=== PATIENT | female | born 1960 | race Caucasian/White ===

== ENCOUNTER 2023-10-27 18:15 | Inpatient (IN) | payer OTHER ==
[2023-10-27] MEDS: HYDROmorphone 1 MG/ML 1 ML SYRINGE IVP STA (20:15)
[2023-10-27] MEDS: MORPHINE SULFATE 4 MG/ML SYRINGE IVP STA (20:21)
--- NOTE | 2023-10-27 21:14 | XR ---
EXAMINATION TYPE: XR Hip RT and AP Pelvis DATE OF EXAM: 10/27/2023 8:02 PM CLINICAL INDICATION: Female, 63 years old with history of fall; [facility] COMPARISON: None. TECHNIQUE: XR Hip RT and AP Pelvis; hip was examined in the frontal and lateral projections and a AP pelvis. FINDINGS/aIMPRESSION: Right hip is rotated slightly. Cortical lucency through the neck suggestive of fracture. Consider CT imaging for confirmation. The left hip appears intact.
--- NOTE | 2023-10-27 21:16 | XR ---
EXAMINATION TYPE: XR chest 1V DATE OF EXAM: 10/27/2023 8:02 PM CLINICAL INDICATION: Female, 63 years old with history of Pre surgical; [facility] COMPARISON: None TECHNIQUE: XR chest 1V Frontal view of the chest. FINDINGS: Lungs/Pleura: Prominent interstitial lung markings are seen scattered throughout the lungs. No eviden ce of focal consolidation, pneumothorax or pleural effusion. Pulmonary vascularity: Unremarkable. Heart/mediastinum: Cardiomediastinal silhouette is unremarkable. Musculoskeletal: No acute osseous pathology. IMPRESSION: Prominent interstitial lung markings in the lung apices. Correlate for COPD/interstitial lung disease , No acute cardiopulmonary disease/process.
[2023-10-27] MEDS ORDERED: NALOXONE 0.4 MG/ML 1 ML VIAL IV PRN (21:30)
[2023-10-27] MEDS ORDERED: IBUPROFEN 400 MG TAB PO PRN (21:30)
--- NOTE | 2023-10-27 21:33 | ED ---
Fall HPI - General Chief Complaint: Fall Stated Complaint: Fall/Hip Pain Time Seen by Provider: 10/27/23 19:12 Source: EMS Mode of arrival: EMS - History of Present Illness Initial Comments: 63-year-old female presented with chief complaint of right hip pain. Patient had a fall from standing at home. She is unable to move her right leg without significant pain. She was brought here by EMS. Pain is focused around the hip. No numbness or tingling. No other injuries. No head injury, loss of consciousness, or use of blood thinners. - Related Data Home Medications Medication Instructions Recorded Confirmed Albuterol Sulfate [Ventolin HFA] 1 - 2 puff INHALATION RT-Q6H PRN 10/28/23 10/28/23 Budesonide/Formoterol Fumarate 2 puff INHALATION RT-BID 10/28/23 10/28/23 [Symbicort 160-4.5 Mcg Inhaler] Butalb/APAP/Caff 50-325-40Mg 1 tab PO Q8H PRN 10/28/23 10/28/23 [Fioricet 50-325-40] Dextroamphetamine/Amphetamine 20 mg PO DAILY 10/28/23 10/28/23 [Adderall Xr 20 mg Capsule] Dextroamphetamine/Amphetamine 5 mg PO DAILY 10/28/23 10/28/23 [Adderall Xr 5 mg Capsule] Ibuprofen [Motrin] 800 mg PO Q8H PRN 10/28/23 10/28/23 Loratadine [Claritin] 10 mg PO DAILY 10/28/23 10/28/23 Allergies Allergy/AdvReac Type Severity Reaction Status Date / Time No Known Allergies Allergy Verified 10/28/23 08:58 Review of Systems ROS Statement: Those systems with pertinent positive or pertinent negative responses have been documented in the HPI. ROS Other: All systems not noted in ROS Statement are negative. Past Medical History Past Medical History: COPD Additional Past Medical History / Comment(s): hx of brain tumor (15 years old) History of Any Multi-Drug Resistant Organisms: None Reported Past Surgical History: Tubal Ligation Past Psychological History: Depression Smoking Status: Current every day smoker Past Alcohol Use History: None Reported Past Drug Use History: None Reported General Exam General appearance: alert, in no apparent distress Head exam: Present: atraumatic, normocephalic, normal inspection Eye exam: Present: normal appearance, EOMI Neck exam: Present: normal inspection. Absent: meningismus Respiratory exam: Absent: respiratory distress Cardiovascular Exam: Present: regular rate Right Hip exam: Present: tenderness, external rotation. Absent: full ROM Neurovascular tendon exam: Present: no vascular compromise Neurological exam: Present: alert, oriented X3 Psychiatric exam: Present: normal affect, normal mood Skin exam: Present: warm, dry Course Vital Signs 10/27/23 10/27/23 10/28/23 18:19 22:49 00:09 Temperature 97.6 F 98.2 F Pulse Rate 71 75 75 Respiratory 16 16 16 Rate Blood Pressure 121/72 105/71 115/71 O2 Sat by Pulse 91 L 92 L 90 L Oximetry Medical Decision Making - Medical Decision Making Was pt. sent in by a medical professional or institution (, PA, BURGLAR ALARM INSPECTOR, urgent care, hospital, or assisted...) When possible be specific @ -No Did you speak to anyone other than the patient for history (EMS, parent, family, police, friend...)? What history was obtained from this source @ -No Did you review nursing and triage notes (agree or disagree)? Why? @ -I reviewed and agree with nursing and triage notes Were old charts reviewed (outside hosp., previous admission, EMS record, old EKG, old radiological studies, urgent care reports/EKG's, assisted records)? Report findings @ -No old charts were reviewed Differential Diagnosis (chest pain, altered mental status, abdominal pain women, abdominal pain men, vaginal bleeding, weakness, fever, dyspnea, syncope, headache, dizziness, GI bleed, back pain, seizure, CVA, palpatations, mental health, musculoskeletal)? @ -Differential Musculoskeletal Muscular strain, contusion, ligament sprain, fracture, arthritis, septic arthritis, bursitis, cellulitis, muscle spasm, nerve compression, DVT, arterial occlusion, herpes zoster, electrolyte abnormality, tumor.... This is not meant to be in all inclusive list EKG interpreted by me (3pts min.). @ -As above X-rays interpreted by me (1pt min.). @ -X-ray shows right hip slightly rotated. Cortical lucency through the neck suggestive of fracture. Left hip appears intact Chest x-ray shows prominent interstitial lung markings in the lung apices. Correlate for COPD/interstitial lung disease, no acute cardiopulmonary disease /process CT interpreted by me (1pt min.). @ -None done U/S interpreted by me (1pt. min.). @ -None done What testing was considered but not performed or refused? (CT, X-rays, U/S, labs)? Why? @ -None What meds were considered but not given or refused? Why? @ -None Did you discuss the management of the patient with other professionals (professionals i.e. DrGoyo, PA, BURGLAR ALARM INSPECTOR, lab, RT, psych nurse, manager social media, fuel conversion technician, teacher, chief contract officer, high risk case manager)? Give summary @ -Spoke with Dr. Ceja who accepts admission Was smoking cessation discussed for >3mins.? @ -No Was critical care preformed (if so, how long)? @ -No Were there social determinants of health that impacted care today? How? (Home lessness, low income, unemployed, alcoholism, drug addiction, transportation, low edu. Level, literacy, decrease access to med. care, [facility], rehab)? @ -No Was there de-escalation of care discussed even if they declined (Discuss DNR or withdrawal of care, Hospice)? DNR status @ -No What co-morbidities impacted this encounter? (DM, HTN, Smoking, COPD, CAD, Cancer, CVA, ARF, Chemo, Hep., AIDS, mental health diagnosis, sleep apnea, morbid obesity)? @ -None Was patient admitted / discharged? Hospital course, mention meds given and route, prescriptions, significant lab abnormalities, going to OR and other pertinent info. @ -63-year-old female presenting with chief complaint of right hip pain after fall at home. X-rays positive for fracture. Patient will be admitted. Provided with pain medication. Labs are placed and consult placed to medicine for surgical clearance. Patient is agreeable with this plan. I discussed this case with my attending Dr. Ramirez Undiagnosed new problem with uncertain prognosis? @ -No Drug Therapy requiring intensive monitoring for toxicity (Heparin, Nitro, Insulin, Cardizem)? @ -No Were any procedures done? @ -No Diagnosis/symptom? @ -Hip fracture Acute, or Chronic, or Acute on Chronic? @ -Acute Uncomplicated (without systemic symptoms) or Complicated (systemic symptoms)? @ -Complicated Side effects of treatment? @ -No Exacerbation, Progression, or Severe Exacerbation? @ -No Poses a threat to life or bodily function? How? (Chest pain, USA, LA, pneumonia, PE, COPD, DKA, ARF, appy, cholecystitis, CVA, Diverticulitis, Homicidal, Suicidal, threat to staff... and all critical care pts) @ -Yes - Lab Data Result diagrams: 10/27/23 21:59 10/27/23 21:59 Disposition Clinical Impression: Hip fracture Disposition: ADMITTED IP TO THIS HOSP Condition: Fair Time of Disposition: 21:33
[2023-10-27] MEDS: SODIUM CHLORIDE 0.9% 1,000 ML IV SCH (21:58)
[2023-10-27 22:12] LABS: Basophils % (A) 0 %; Eosinophils % (A) 0 %; HCT 40.7 % (34.0-46.0); HGB 13.5 gm/dL (11.4-16.0); Lymphocytes # (A) 0.9 k/uL (1.0-4.8); Lymphocytes % (A) 9 %; MCH 31.1 pg (25.0-35.0); MCHC 33.1 g/dL (31.0-37.0); Monocytes # (A) 0.8 k/uL (0-1.0); Monocytes % (A) 9 %; Neutrophils # (A) 7.8 k/uL (1.3-7.7); Neutrophils % (A) 81 %; Platelet Count 139 k/uL (150-450); RBC 4.33 m/uL (3.80-5.40); RDW 12.1 % (11.5-15.5); WBC 9.7 k/uL (3.8-10.6)
[2023-10-27 22:45] LABS: ALT 34 U/L (4-34); AST 35 U/L (14-36); African American GFR (CKD) >90 (>60 ml/min/1.73 sqM); Alkaline Phosphatase 78 U/L (38-126); Anion Gap 2 mmol/L; Blood Urea Nitrogen 17 mg/dL (7-17); Calcium 9.4 mg/dL (8.4-10.2); Carbon Dioxide 29 mmol/L (22-30); Chloride 104 mmol/L (98-107); Glucose 117 mg/dL (74-99); Non-African American GFR(CKD) >90 (>60 ml/min/1.73 sqM); Potassium 3.8 mmol/L (3.5-5.1); Sodium 135 mmol/L (137-145); Total Bilirubin 0.6 mg/dL (0.2-1.3); Total Protein 6.3 g/dL (6.3-8.2)
[2023-10-27] MEDS: HYDROcodone/APAP 5-325MG 1 EACH TAB PO PRN (22:50)
[2023-10-28] MEDS: MORPHINE SULFATE 4 MG/ML SYRINGE IV PRN (00:35)
--- NOTE | 2023-10-28 11:51 | P.HPOR ---
History of Present Illness H&P Date: 10/28/23 Chief Complaint: Right hip pain. This is a 63-year-old female who fell in her home yesterday sustaining injury to her right hip. On exam and x-ray in the emergency department she was found to have a femoral neck fracture of the right hip. The patient is admitted to our service for surgical intervention and care. Past Medical History Past Medical History: COPD Additional Past Medical History / Comment(s): hx of brain tumor (15 years old) History of Any Multi-Drug Resistant Organisms: None Reported Past Surgical History: Tubal Ligation Past Anesthesia/Blood Transfusion Reactions: No Reported Reaction Past Psychological History: Depression Smoking Status: Current every day smoker Past Alcohol Use History: None Reported Past Drug Use History: None Reported Medications and Allergies Home Medications Medication Instructions Recorded Confirmed Type Albuterol Sulfate [Ventolin HFA] 1 - 2 puff INHALATION RT-Q6H PRN 10/28/23 10/28/23 History Budesonide/Formoterol Fumarate 2 puff INHALATION RT-BID 10/28/23 10/28/23 History [Symbicort 160-4.5 Mcg Inhaler] Butalb/APAP/Caff 50-325-40Mg 1 tab PO Q8H PRN 10/28/23 10/28/23 History [Fioricet 50-325-40] Dextroamphetamine/Amphetamine 20 mg PO DAILY 10/28/23 10/28/23 History [Adderall Xr 20 mg Capsule] Dextroamphetamine/Amphetamine 5 mg PO DAILY 10/28/23 10/28/23 History [Adderall Xr 5 mg Capsule] Ibuprofen [Motrin] 800 mg PO Q8H PRN 10/28/23 10/28/23 History Loratadine [Claritin] 10 mg PO DAILY 10/28/23 10/28/23 History Allergies Allergy/AdvReac Type Severity Reaction Status Date / Time No Known Allergies Allergy Verified 10/28/23 08:58 Physical Examination This is a pleasant 63-year-old female in no acute distress. She is alert and oriented 3. Exam of the head and neck reveals no obvious deformity. She has full cervical spine motion without difficulty or pain. Examining her upper extremities is unremarkable. She has full shoulder, elbow, wrist and finger motion bilaterally. Neurovascular status to the upper extremities is intact. Exam of the right hip reveals shortening and external rotation to the leg. There is pain with motion to the right hip. She has full foot and ankle motion without difficulty or pain.Neurovascular status to the lower extremities is intact. Results X-rays reveal a femoral neck fracture with mild displacement. - Labs Labs: Abnormal Lab Results - Last 24 Hours (Table) 10/27/23 10/27/23 Range/Units 21:59 21:59 Plt Count 139 L (150-450) k/uL Neutrophils # 7.8 H (1.3-7.7) k/uL Lymphocytes # 0.9 L (1.0-4.8) k/uL Sodium 135 L (137-145) mmol/L Creatinine 0.48 L (0.52-1.04) mg/dL Glucose 117 H (74-99) mg/dL H & H 10/27/23 Range/Units 21:59 Hgb 13.5 (11.4-16.0) gm/dL Hct 40.7 (34.0-46.0) % Result Diagrams: 10/27/23 21:59 10/27/23 21:59 Assessment and Plan (1) Subcapital fracture of right hip Current Visit: Yes Status: Acute Code(s): S72.011A - UNSP INTRACAPSULAR FRACTURE OF RIGHT FEMUR, INIT FOR CLOS FX SNOMED Code(s): 206906227 (2) Fall Current Visit: Yes Status: Acute Code(s): W19.XXXA - UNSPECIFIED FALL, INITIAL ENCOUNTER SNOMED Code(s): 6427100 Plan: The clinical and x-ray findings are discussed with the patient. It is recommended she undergo hemiarthroplasty of the right hip. The procedures discussed in detail including the possible risks and outcomes. She may likely be a candidate for inpatient rehabilitation postoperatively. After discussion and consideration the patient elects to proceed with the surgery.
[2023-10-28 14:50] VITALS: BMI 17.6
[2023-10-29 09:41] LABS: Prothrombin Time 11.1 sec (10.0-12.5)
--- NOTE | 2023-10-29 09:43 | P.CONS ---
History of Present Illness - Reason for Consult Consult date: 10/29/23 - History of Present Illness 63-year-old female presents emergency department with right hip pain following a fall from standing at home. Upon arrival patient was unable to move her right leg without significant pain. Was brought to the hospital by EMS localizing pain to her right hip. She had no associated numbness or tingling. She has no other injuries, no head injury no loss of consciousness or use of blood thinne rs. On x-ray in the emergency department patient was found to have a femoral neck fracture of the right hip. Patient has been admitted to the surgical service for intervention care. Patient has taken 1 [place] 5325 and 4 mg IV push of morphine thus far for pain. She has a past medical history significant for COPD and she continues to be a current smoker endorsing smoking half pack per day since she was a teenager (~50 years) for which she utilizes Symbicort once in the morning and once at night and has an albuterol inhaler as needed, which she states she almost never has to use. Additionally past medical history significant for a brain tumor that was surgically removed when she was 15 years old, she also states that she currently has a "small" tumor in her brain that causes headaches sometimes, for which she takes Fioricet (she states she has to take this ~3 times every week). On review of patient's home medications she is currently taking Symbicort twice daily, albuterol as needed (which she states she rarely, if ever, needs), Fioricet, Adderall (which she states she has not be en taking), as well as [id number] vitamins (C, D, iron, magnesium). She states she follows up with a primary care physician every 3 months, most recently seeing them last month. From a medicine perspective, she is cleared for surgery. Initial lab work done in the ER showed WBCs 9.7, Hgb 13.5, Hct 40.7, PLT 139, sodium 135, BUN 17, creatinine 0.48, glucose of 117 Right hip and AP pelvis x-ray done in the emergency department showed that the right hip is slightly rotated, cortical lucency through the neck suggestive of fracture. Recommending CT imaging for confirmation. Chest x-ray completed in the emergency department showed prominent interstitial lung markings in the lung apices, recommending correlation for COPD/interstitial lung disease. There is no acute cardiopulmonary disease/process. Patient admitted to internal medicine service REVIEW OF SYSTEMS: CONSTITUTIONAL: No fever, no malaise, no fatigue. HEENT: No recent visual problems or hearing problems. Denied any sore throat. CARDIOVASCULAR: No chest pain, orthopnea, PND, no palpitations, no syncope. PULMONARY: No shortness of breath, no cough, no hemoptysis. GASTROINTESTINAL: No diarrhea, no nausea, no vomiting, no abdominal pain. NEUROLOGICAL: No headaches, no weakness, no numbness. HEMATOLOGICAL: Denies any bleeding or petechiae. GENITOURINARY: Denies any burning micturition, frequency, or urgency. MUSCULOSKELETAL/RHEUMATOLOGICAL: Denies any joint pain, swelling. Pain localized to the right hip ENDOCRINE: Denies any polyuria or polydipsia. The rest of the 14-point review of systems is negative. PHYSICAL EXAMINATION: GENERAL: The patient is alert and oriented x3, not in any acute distress. Well developed, well nourished. Discomfort noted due to pain from his ribs. HEENT: Pupils are round and equally reacting to light. EOMI. No scleral icterus. No conjunctival pallor. Normocephalic, atraumatic. No pharyngeal erythema. No thyromegaly. Laceration of the left eyebrow. CARDIOVASCULAR: S1 and S2 present. No murmurs, rubs, or gallops. PULMONARY: Chest is clear to auscultation, no wheezing or crackles. ABDOMEN: Soft, nontender, nondistended, normoactive bowel sounds. No palpable organomegaly. Mild tenderness of the right upper abdomen. MUSCULOSKELETAL: No joint swelling or deformity. Pain localized to the right hip EXTREMITIES: No cyanosis, clubbing, or pedal edema. NEUROLOGICAL: Gross neurological examination did not reveal any focal deficits. SKIN: No rashes. Open scrape on his right elbow and his right knee, both cared for and covered with bandages. Assessment/Plan # Femoral neck fracture of the right hip secondary to mechanical fall at home Patient endorses right hip pain that radiates down her right leg, femoral neck fracture confirmed on x-ray Surgical intervention required Patient is low to intermediate operative risk the risk being COPD and active smoking -COPD without any acute exacerbation Continue to monitor vital signs, monitor CBC, monitor CMP, continue telemetry monitoring Labs and medication were reviewed. Continue with symptomatic treatment. Resume home medication as able. Further recommendations as per clinical course of the patient. Thank you for this consult we will continue to manage and follow medically as needed. Past Medical History Past Medical History: COPD Additional Past Medical History / Comment(s): hx of brain tumor (15 years old) History of Any Multi-Drug Resistant Organisms: None Reported Past Surgical History: Tubal Ligation Past Anesthesia/Blood Transfusion Reactions: No Reported Reaction Past Psychological History: Depression Smoking Status: Current every day smoker Past Alcohol Use History: None Reported Past Drug Use History: None Reported Medications and Allergies Home Medications Medication Instructions Recorded Confirmed Type Albuterol Sulfate [Ventolin HFA] 1 - 2 puff INHALATION RT-Q6H PRN 10/28/23 10/28/23 History Budesonide/Formoterol Fumarate 2 puff INHALATION RT-BID 10/28/23 10/28/23 History [Symbicort 160-4.5 Mcg Inhaler] Butalb/APAP/Caff 50-325-40Mg 1 tab PO Q8H PRN 10/28/23 10/28/23 History [Fioricet 50-325-40] Dextroamphetamine/Amphetamine 20 mg PO DAILY 10/28/23 10/28/23 History [Adderall Xr 20 mg Capsule] Dextroamphetamine/Amphetamine 5 mg PO DAILY 10/28/23 10/28/23 History [Adderall Xr 5 mg Capsule] Ibuprofen [Motrin] 800 mg PO Q8H PRN 10/28/23 10/28/23 History Loratadine [Claritin] 10 mg PO DAILY 10/28/23 10/28/23 History Allergies Allergy/AdvReac Type Severity Reaction Status Date / Time No Known Allergies Allergy Verified 10/28/23 08:58 Physical Exam Vitals: Vital Signs Temp Pulse Resp BP Pulse Ox 10/29/23 01:06 99.7 F H 79 16 137/72 97 10/28/23 20:00 17 Intake and Output 10/28/23 10/29/23 10/29/23 22:59 06:59 14:59 Output Total 200 150 Balance -200 -150 Output: Urine 200 150 Other: Voiding Method External Catheter # Voids 1 Results CBC & Chem 7: 10/27/23 21:59 10/27/23 21:59
[2023-10-29] MEDS: IV FLUID CONTINUATION 1,000 ML IV ONE (11:21)
[2023-10-29] MEDS: MIDAZOLAM 2 MG/2 ML VIAL IVP ONE (11:39)
--- NOTE | 2023-10-29 11:49 | P.ANPRN ---
Procedure Note - Anesthesia - Nerve Block Performed Right Derik Single Time Out Performed: Yes Date of Procedure: 10/29/23 Procedure Start Time: 11:39 Procedure Stop Time: 11:44 Location of Patient: PreOp Indication: Acute Post-Operative Pain, Analgesia, Requested by Surgeon Sedation Type: Sedate with meaningful contact maintained Preparation: Sterile Prep Position: Supine Catheter: None Needle Types: Pajunk Needle Gauge: 21 Ultrasound used to visualize needle placement: Yes Ultrasound used to observe medication spread: Yes Injectate: 0.5% Ropivacaine (see comment for volume) (Ropiv 20ml+decadron 4mg) Blood Aspirated: No Pain Paresthesia on Injection Noted: No Resistance on Injection: Normal Image Stored and Saved: Yes Events: Uneventful and Well Tolerated
[2023-10-29] MEDS ORDERED: TRANEXAMIC ACID 1,000 MG in SODIUM CHLORIDE 0.9% 100 ML IVPB PRN (11:51)
[2023-10-29] MEDS: IPRATROPIUM-ALBUTEROL 3 ML NEB INHALATION STA (11:54)
[2023-10-29] MEDS: ONDANSETRON 4 MG/2 ML VIAL IVP STA (11:55)
[2023-10-29] MEDS: DEXAMETHASONE SOD PHOSPHATE 4 MG/ML 1 ML VIAL IVP STA (11:55)
[2023-10-29] MEDS ORDERED: LIDOCAINE 1% INJ 10MG/ML (20 ML MDV) ONE (12:05)
[2023-10-29] MEDS ORDERED: TRANEXAMIC 1,000 MG/100ML-NACL PREMIX BAG ONE (12:05)
[2023-10-29] MEDS ORDERED: DEXAMETHASONE SOD PHOSPHATE 4 MG/ML 1 ML VIAL ONE (12:05)
[2023-10-29] MEDS ORDERED: SUCCINYLCHOLINE CHLORIDE 200 MG/10 ML VIAL IV ONE (12:05)
[2023-10-29] MEDS ORDERED: fentaNYL (PF) 50 MCG/ML 2 ML AMP ONE (12:05)
[2023-10-29] MEDS ORDERED: ROPIVACAINE 5 MG/ML 30 ML VIAL ONE (12:05)
[2023-10-29] MEDS ORDERED: PROPOFOL 10 MG/ML 20 ML VIAL IV ONE (12:05)
[2023-10-29] MEDS: LACTATED RINGERS 1,000 ML IV ONE ×2 (12:07→13:36)
[2023-10-29] MEDS: SODIUM CHLORIDE 0.9% 100 ML with ceFAZolin 2,000 MG IV ONE (12:10)
[2023-10-29] MEDS: ceFAZolin 1,000 MG in SODIUM CHLORIDE 0.9% 1,000 ML IRRIGATION ONE (12:40)
[2023-10-29] MEDS ORDERED: MAGNESIUM HYDROXIDE 2,400 MG/30 ML CUP PO PRN (13:41)
[2023-10-29] MEDS ORDERED: HYDROmorphone 0.5 MG/0.5 ML SYRINGE IVP PRN (13:41)
[2023-10-29] MEDS ORDERED: NALOXONE 0.4 MG/ML 1 ML VIAL IV PRN (13:41)
[2023-10-29] MEDS ORDERED: HYDROcodone/APAP 5-325MG 1 EACH TAB PO PRN (13:41)
[2023-10-29] MEDS ORDERED: ONDANSETRON 4 MG/2 ML VIAL IVP PRN (13:41)
--- NOTE | 2023-10-29 14:16 | P.OP ---
Date of Procedure: 10/29/23 Procedure(s) Performed: PREOPERATIVE DIAGNOSIS: Right hip femoral neck fracture POSTOPERATIVE DIAGNOSIS: Right hip femoral neck fracture OPERATION: Right hip cemented unipolar hemiarthroplasty. ANESTHESIA: General ESTIMATED BLOOD LOSS: 100 ml. [employer]ILITY [employer]: Inocencia Bello PA-C (assistance with: patient positioning, retraction, exposure, hemostasis, leg positioning, implantation, irrigation, closure, dressing) COMPLICATIONS: None apparent. COMPONENTS IMPLANTED: Lauren Heritage cemented femoral stem; unipolar femoral head; neck extension augments as needed. INDICATIONS: Clare is a 63-year-old female with a history of falling and sustaining a femoral neck fracture. I have recommended surgical treatment with a cemented unipolar hemiarthroplasty. I have discussed this procedure in detail and explained the potential risks and complications as being inclusive of, but not limited to: Bleeding, infection, scarring, discomfort, blood vessel and/or nerve damage, limb length inequality, gait disturbance, blood clot, pulmonary embolism, , and other risks. The consent form has been signed. PROCEDURE: After appropriate consent was obtained, the patient was taken to the operating room and placed in supine position. Gen. anesthetic was administered and after confirmation of adequate anesthesia, the patient was placed into the lateral decubitus position with the affected side up. Care was taken to make sure that all pressure points were adequately padded and a [place] hip posi tioner was utilized for positioning. The hip was prepped and draped in the usual aseptic fashion using a combination of Chloraprep and alcohol. [place] drape was used for the case and the patient received intravenous antibiotics prior to the incision. The incision was created directly over the greater trochanter and carried slightly posteriorly for a posterior approach to the hip. The incision was then deepened down to subcutaneous tissue and fascia abhay. Fascia abhay was split in line with the incision and split proximally along the fibers of the gluteus arthur. The underlying fibers of the muscle were teased apart using finger dissection and bleeding vessels were picked up and coagulated. Retractor was then placed posteriorly consisting of a blunt Sim. The short external rotators and capsule were exposed and good visualization of the attachment of the external rotators to the femur was established. The short external rotators and capsule were released using electrocautery from their femoral attachments. A hockey stick shaped incision was created in the capsule. Joint fluid and hemarthrosis was evacuated and the patient's hip was internally rotated to expose the fracture site. The femoral neck cut was created approximately 1 cm superior to the lesser trochanter using a reciprocating saw. The femoral head and neck fragment was removed and visualization and palpation of the acetabular vault showed intact hyaline cartilage with no bone exposure or significant degeneration. Attention was then directed back to the proximal femur. Retractors were placed around the proximal femur and box osteotome was used followed by canal finder and trochanteric reamer. Cylindrical reaming was performed. Progressive broaching was then performed starting with a #10 broach and progressing final size, in a position of 10-15 degrees anteversion. [place] anteversion was within 5 degrees of stem position. The final size broach had excellent fit and fill of the patient's metaphysis and diaphysis. Calcar planing was performed. Trial reduction was then performed starting with appropriately sized femoral head and various neck extensions to evaluate stability, limb length equality, and soft tissue tension. Once these parameters were satisfactory, the corresponding final components were then called for. Trial components were removed. The femoral canal was sized for the centralizer and cement plug. Once the cement plug had been inserted distal to the planned length of the femoral component, the canal was pulse lavaged and brushed to remove any unstable bone. It was then dried with a lap sponge. Cement was mixed under vacuum conditions to decrease porosity and inserted into a cement gun. Distal centralizer was placed onto the femoral component with a bit of cement. The cement was allowed to reach a slightly doughy consistency and then the canal was filled retrograde with the cement gun. Thumb pressurization was performed three times. The femoral component was then inserted with the previously determined degree of anteversion. Excess cement was removed before it hardened completely. The femoral head was then impacted onto the M[place]and taper. Blood and debris were removed from the acetabular socket and the hip was then reduced and checked for stability, limb length and soft tissue tension. These parameters were found to be satisfactory; the wound was then thoroughly irrigated with normal saline. Final hemostasis was obtained using electrocautery. Closure of the capsule was performed meticulously using #3 Vicryl suture. Four [id number] sutures were placed in the posterior capsule along with repair of the external rotators. The fascia abhay was then repaired using combination of #3 Vicryl suture in interrupted fashion and [place] in running fashion. 2-0 Vicryl suture was used for the subcutaneous tissues and 3-0 [place] for the skin. Dermabond tape was then applied. The patient tolerated the procedure well. There were no complications and the wound bed was dry and there was no need for drain placement. Sterile dressing was then applied and the patient was carefully removed from the operating room table, placed on the stretcher and was taken to the recovery room in stable condition. Sponge and needle counts were correct.
[2023-10-29] MEDS: LACTATED RINGERS 1,000 ML IV SCH (18:28)
--- NOTE | 2023-10-29 19:22 | XR ---
EXAMINATION TYPE: XR Hip Limited RT DATE OF EXAM: 10/29/2023 7:09 PM CLINICAL INDICATION:Female, 63 years old with history of Status post hip surgery, assess surgical ali gnment; [facility] COMPARISON: Right hip radiograph 10/27/2023 TECHNIQUE: XR Hip Limited RT; hip was examined in a single frontal view. FINDINGS: Right hip arthroplasty hardware is noted seated within the acetabulum and right femur. No evidence of dislocation. No acute fractures in the remainder of the visualized osseous structures. There is surr ounding soft tissue edema of the right hip with some subcutaneous gas. IMPRESSION: 1. Right hip arthroplasty hardware is intact with no new acute fractures visualized. 2. Expected soft tissue postsurgical changes of the right hip.
[2023-10-29] MEDS: HYDROmorphone 1 MG/ML 1 ML SYRINGE IVP PRN (19:42)
[2023-10-29] MEDS: SENNOSIDES-DOCUSATE SODIUM 1 EACH TAB PO SCH (21:02)
[2023-10-29] MEDS: ASPIRIN 81 MG PO SCH (21:02)
[2023-10-30] MEDS: MELOXICAM 7.5 MG TAB PO SCH (09:25)
--- NOTE | 2023-10-30 10:24 | P.PN ---
Subjective Progress Note Date: 10/30/23 This is a 63-year-old female who is status post right hip cemented unipolar hemiarthroplasty. This is postoperative day #1 and patient is seen and evaluated at bedside today. Patient states that her pain is well-controlled and she denies any new complaints today. Objective - Vital Signs Vital signs: Vital Signs Temp 99.0 F 10/30/23 07:06 Pulse 82 10/30/23 07:06 Resp 18 10/30/23 07:06 BP 115/73 10/30/23 07:06 Pulse Ox 95 10/30/23 07:06 FiO2 Intake & Output 10/29/23 10/30/23 10/30/23 18:59 06:59 18:59 Intake Total 2101 Output Total 1000 Balance 1101 Intake: IV 2100 Output: Urine 900 Estimated Blood Loss 100 Other: Voiding Method Indwelling Catheter - Exam Vital signs are stable. Patient is in no acute distress and is alert and oriented 3. Calf is soft and nontender to palpation. Dressing is clean, dry, and intact. Patient has full foot and ankle motion without pain or difficulty. Sensation intact. Neurovascular status and circulatory status are intact. - Labs CBC & Chem 7: 10/27/23 21:59 10/27/23 21:59 Assessment and Plan Assessment: Status post right hip cemented unipolar hemiarthroplasty (1) Fall Current Visit: Yes Status: Acute Code(s): W19.XXXA - UNSPECIFIED FALL, INITIAL ENCOUNTER SNOMED Code(s): 0397022 (2) Hip fracture Current Visit: Yes Status: Acute Code(s): S72.009A - FRACTURE OF UNSP PART OF NECK OF UNSP FEMUR, INIT SNOMED Code(s): 074754843 (3) Subcapital fracture of right hip Current Visit: Yes Status: Acute Code(s): S72.011A - UNSP INTRACAPSULAR FRACTURE OF RIGHT FEMUR, INIT FOR CLOS FX SNOMED Code(s): 077456692 Plan: Continue routine postop care and pain control. Continue hip dislocation precautions. Continue anticoagulation. Weightbearing as tolerated with a walker. Leave dressing in place for 7 days. Appreciate input from internal medicine. Anticipate discharge to [facility] in the next 24-48 hours.
[2023-10-30 10:33] LABS: Basophils # (M) 0 X 10*3/uL (0.00-0.10); Eosinophils # (M) 0 X 10*3/uL (0.04-0.35); HCT 32.3 % (37.2-46.3); Lymphocytes # (M) 1.18 X 10*3/uL (0.90-5.00); MCH 31.5 pg (27.0-32.0); MCHC 34.1 g/dL (32.0-37.0); MCV 92.6 FL (80.0-97.0); Mean Platelet Volume 12.7 FL (9.5-12.2); Monocytes # (M) 1.54 X 10*3/uL (0.20-1.00); NRBC Per 100 WBC 0 X 10*3/uL (0.00-0.01); Neutrophils # (M) 9.09 X 10*3/uL (1.80-7.70); Neutrophils % (M) 77 %; Platelet Count 99 X 10*3/uL (140-440); RBC 3.49 X 10*6/uL (4.10-5.20); RDW 11.9 % (11.5-14.5); WBC 11.81 X 10*3/uL (4.50-10.00)
--- NOTE | 2023-10-30 11:23 | P.PN ---
Subjective Progress Note Date: 10/30/23 63-year-old female presents emergency department with right hip pain following a fall from standing at home. Upon arrival patient was unable to move her right leg without significant pain. Was brought to the hospital by EMS localizing pain to her right hip. She had no associated numbness or tingling. She has no other injuries, no head injury no loss of consciousness or use of blood thinners. On x-ray in the emergency department patient was found to have a femoral neck fracture of the right hip. Patient has been admitted to the surgical service for intervention care. Patient has taken 1 [place] 5325 and 4 mg IV push of morphine thus far for pain. She has a past medical history significant for COPD and she continues to be a current smoker endorsing smoking half pack per day since she was a teenager (~50 years) for which she utilizes Symbicort once in the morning and once at night and has an albuterol inhaler as needed, which she states she almost never has to use. Additionally past medical history significant for a brain tumor that was surgically removed when she was 15 years old, she also states that she currently has a "small" tumor in her brain that causes headaches sometimes, for which she takes Fioricet (she states she has to take this ~3 times every week). On review of patient's home medications she is currently taking Symbicort twice daily, albuterol as needed (which she states she rarely, if ever, needs), Fioricet, Adderall (which she states she has not been taking), as well as [id number]-[id number] vitamins (C, D, iron, magnesium). She states she follows up with a primary care physician every 3 months, most recently seeing them last month. From a medicine perspective, she is cleared for surgery. Initial lab work done in the ER showed WBCs 9.7, Hgb 13.5, Hct 40.7, PLT 139, sodium 135, BUN 17, creatinine 0.48, glucose of 117 Right hip and AP pelvis x-ray done in the emergency department showed that the right hip is slightly rotated, cortical lucency through the neck suggestive of fracture. Recommending CT imaging for confirmation. Chest x-ray completed in the emergency department showed prominent interstitial lung markings in the lung apices, recommending correlation for COPD/interstitial lung disease. There is no acute cardiopulmonary disease/process. 10/29 - Patient seen at bedside today. Patient postoperative day #1 from a right hip femoral neck fracture repair yesterday. She states that she is currently feeling feeling well since she slept well overnight. patient's vitals overnight, blood pressure 113/68 heart rate 75 oxygen saturation 94% on 3 L nasal cannula. She received 1 mg IV push of Dilaudid overnight to help control pain. Right hip x-ray done yesterday (10/28) afternoon following surgery indicated right hip arthroplasty hardware is intact with no new acute fractures visualized, as well as expected soft tissue postsurgical changes of the right hip. She states that she her pain is well-controlled and has no current complaints. Right hip x-ray completed after surgery showed right hip arthroplasty hardware intact with no new fractures visualized, as well as expected soft tissue postsurgical changes of the right hip. REVIEW OF SYSTEMS: CONSTITUTIONAL: No fever, no malaise, no fatigue. HEENT: No recent visual problems or hearing problems. Denied any sore throat. CARDIOVASCULAR: No chest pain, orthopnea, PND, no palpitations, no syncope. PULMONARY: No shortness of breath, no cough, no hemoptysis. GASTROINTESTINAL: No diarrhea, no nausea, no vomiting, no abdominal pain. NEUROLOGICAL: No headaches, no weakness, no numbness. HEMATOLOGICAL: Denies any bleeding or petechiae. GENITOURINARY: Denies any burning micturition, frequency, or urgency. MUSCULOSKELETAL/RHEUMATOLOGICAL: Denies any joint pain, swelling. Pain localized to the right hip ENDOCRINE: Denies any polyuria or polydipsia. The rest of the 14-point review of systems is negative. PHYSICAL EXAMINATION: GENERAL: The patient is alert and oriented x3, not in any acute distress. Well developed, well nourished. Discomfort noted due to pain from his ribs. HEENT: Pupils are round and equally reacting to light. EOMI. No scleral icterus. No conjunctival pallor. Normocephalic, atraumatic. No pharyngeal erythema. No thyromegaly. Laceration of the left eyebrow. CARDIOVASCULAR: S1 and S2 present. No murmurs, rubs, or gallops. PULMONARY: Chest is clear to auscultation, slight wheezing noted in the left lower lung. ABDOMEN: Soft, nontender, nondistended, normoactive bowel sounds. No palpable organomegaly. Mild tenderness of the right upper abdomen. MUSCULOSKELETAL: No joint swelling or deformity. Pain localized to the right hip EXTREMITIES: No cyanosis, clubbing, or pedal edema. NEUROLOGICAL: Gross neurological examination did not reveal any focal deficits. SKIN: No rashes. Assessment and plan # Femoral neck fracture of the right hip secondary to mechanical fall at home Patient endorses right hip pain that radiates down her right leg, femoral neck fracture confirmed on x-ray Surgical intervention required Patient is low to intermediate operative risk the risk being COPD and active smoking -COPD without any acute exacerbation Patient underwent right hip arthroplasty on 10/28; right hip x-ray following surgery showed right hip arthroplasty hardware intact with no new fractures visualized in expected soft tissues and postsurgical changes of the right hip. Status postoperative day #1 patient states she feels well, with no current acute complaints. Continue to monitor vital signs, monitor CBC, monitor CMP, continue telemetry monitoring Labs and medication were reviewed. Continue with symptomatic treatment. Resume home medication as able. Further recommendations as per clinical course of the patient. Dictation was produced using [employer] dictation software. please excuse any gr ammatical, word or spelling errors. Dr. Marley MD I have performed a history and physical examination and medical decision making of this patient, discussed the same with the the resident, and agree with the assessment and plan as written. I performed brief physical exam. Objective - Vital Signs Vital signs: Vital Signs Temp 98.2 F 10/30/23 02:15 Pulse 75 10/30/23 02:15 Resp 18 10/29/23 14:50 BP 113/68 10/30/23 02:15 Pulse Ox 94 L 10/30/23 02:15 FiO2 Intake & Output 10/29/23 10/30/23 10/30/23 18:59 06:59 18:59 Intake Total 2101 Output Total 1000 Balance 1101 Intake: IV 2101 Output: Urine 900 Estimated Blood Loss 100 Other: Voiding Method Indwelling Catheter - Labs CBC & Chem 7: 10/30/23 05:53 10/27/23 21:59
[2023-10-30] MEDS: MULTIVITAMINS, THERA 1 EACH TAB PO SCH (12:26)
[2023-10-31] MEDS: HYDROmorphone 0.5 MG/0.5 ML SYRINGE IVP PRN (02:29)
--- NOTE | 2023-10-31 08:02 | P.PN ---
Subjective Progress Note Date: 10/31/23 This is a 63-year-old female who is status post right hip cemented unipolar hemiarthroplasty. This is postoperative day #2 and patient is seen and evaluated at bedside today. Patient states that she is sore in the right thigh today, but she denies any new complaints today. Objective - Vital Signs Vital signs: Vital Signs Temp 98.6 F 10/31/23 00:18 Pulse 74 10/31/23 00:18 Resp 14 10/31/23 00:18 BP 105/68 10/31/23 00:18 Pulse Ox 98 10/31/23 00:18 FiO2 Intake & Output 10/30/23 10/31/23 10/31/23 18:59 06:59 18:59 Output Total 800 Balance -800 Output: Urine 800 Other: Voiding Method Indwelling Catheter Indwelling Catheter - Exam Vital signs are stable. Patient is in no acute distress and is alert and oriented 3. Calf is soft and nontender to palpation. Dressing is clean, dry, and intact. Patient has full foot and ankle motion without pain or difficulty. Sensation intact. Neurovascular status and circulatory status are intact. - Labs CBC & Chem 7: 10/30/23 05:53 10/27/23 21:59 Labs: Abnormal Lab Results - Last 24 Hours (Table) 10/30/23 Range/Units 05:53 WBC 11.81 H (4.50-10.00) X 10*3/uL RBC 3.49 L (4.10-5.20) X 10*6/uL Hgb 11.0 L (12.0-15.0) g/dL Hct 32.3 L (37.2-46.3) % Plt Count 99 L (140-440) X 10*3/uL MPV 12.7 H (9.5-12.2) FL Neutrophils # (Manual) 9.09 H (1.80-7.70) X 10*3/uL Monocytes # (Manual) 1.54 H (0.20-1.00) X 10*3/uL Eosinophils # (Manual) 0 L (0.04-0.35) X 10*3/uL Assessment and Plan Assessment: Status post right hip cemented unipolar hemiarthroplasty (1) Fall Current Visit: Yes Status: Acute Code(s): W19.XXXA - UNSPECIFIED FALL, INITIAL ENCOUNTER SNOMED Code(s): 9418828 (2) Hip fracture Current Visit: Yes Status: Acute Code(s): S72.009A - FRACTURE OF UNSP PART OF NECK OF UNSP FEMUR, INIT SNOMED Code(s): 512168081 (3) Subcapital fracture of right hip Current Visit: Yes Status: Acute Code(s): S72.011A - UNSP INTRACAPSULAR FRACTURE OF RIGHT FEMUR, INIT FOR CLOS FX SNOMED Code(s): 446511016 Plan: Continue routine postop care and pain control. Continue hip dislocation precautions. Continue anticoagulation. Weightbearing as tolerated with a walker. Leave dressing in place for 7 days. Appreciate input from internal medicine. Anticipate discharge to [facility] in the next 24-48 hours.
--- NOTE | 2023-10-31 21:41 | P.PN ---
Subjective Progress Note Date: 10/31/23 63-year-old female presents emergency department with right hip pain following a fall from standing at home. Upon arrival patient was unable to move her right leg without significant pain. Was brought to the hospital by EMS localizing pain to her right hip. She had no associated numbness or tingling. She has no other injuries, no head injury no loss of consciousness or use of blood thinners. On x-ray in the emergency department patient was found to have a femoral neck fracture of the right hip. Patient has been admitted to the surgical service for intervention care. Patient has taken 1 Onyx 5325 and 4 mg IV push of morphine thus far for pain. She has a past medical history significant for COPD and she continues to be a current smoker endorsing smoking half pack per day since she was a teenager (~50 years) for which she utilizes Symbicort once in the morning and once at night and has an albuterol inhaler as needed, which she states she almost never has to use. Additionally past medical history significant for a brain tumor that was surgically removed when she was 15 years old, she also states that she currently has a "small" tumor in her brain that causes headaches sometimes, for which she takes Fioricet (she states she has to take this ~3 times every week). On review of patient's home medications she is currently taking Symbicort twice daily, albuterol as needed (which she states she rarely, if ever, needs), Fioricet, Adderall (which she states she has not been taking), as well as [id number] vitamins (C, D, iron, magnesium). She states she follows up with a primary care physician every 3 months, most recently seeing them last month. From a medicine perspective, she is cleared for surgery. Initial lab work done in the ER showed WBCs 9.7, Hgb 13.5, Hct 40.7, PLT 139, sodium 135, BUN 17, creatinine 0.48, glucose of 117 Right hip and AP pelvis x-ray done in the emergency department showed that the right hip is slightly rotated, cortical lucency through the neck suggestive of fracture. Recommending CT imaging for confirmation. Chest x-ray completed in the emergency department showed prominent interstitial lung markings in the lung apices, recommending correlation for COPD/interstitial lung disease. There is no acute cardiopulmonary disease/process. 10/29 - Patient seen at bedside today. Patient postoperative day #1 from a right hip femoral neck fracture repair yesterday. She states that she is currently feeling feeling well since she slept well overnight. patient's vitals overnight, blood pressure 113/68 heart rate 75 oxygen saturation 94% on 3 L nasal cannula. She received 1 mg IV push of Dilaudid overnight to help control pain. Right hip x-ray done yesterday (10/28) afternoon following surgery indicated right hip arthroplasty hardware is intact with no new acute fractures visualized, as well as expected soft tissue postsurgical changes of the right hip. She states that she her pain is well-controlled and has no current complaints. Right hip x-ray completed after surgery showed right hip arthroplasty hardware intact with no new fractures visualized, as well as expected soft tissue postsurgical changes of the right hip. 10/31/2023 Patient is evaluated today in follow up postoperative day #2 right hip arthroplasty. States it did not go well with physical therapy and feels she will likely need rehab on discharge. She is wearing 2L of oxygen. Continues on normal saline 50 mls/hr. on Aspirin 81 mg BID. REVIEW OF SYSTEMS: CONSTITUTIONAL: No fever, no malaise, no fatigue. HEENT: No recent visual problems or hearing problems. Denied any sore throat. CARDIOVASCULAR: No chest pain, orthopnea, PND, no palpitations, no syncope. PULMONARY: No shortness of breath, no cough, no hemoptysis. GASTROINTESTINAL: No diarrhea, no nausea, no vomiting, no abdominal pain. NEUROLOGICAL: No headaches, no weakness, no numbness. PHYSICAL EXAMINATION: GENERAL: The patient is alert and oriented x3, not in any acute distress. Well developed, well nourished. Discomfort noted due to pain from his ribs. HEENT: Pupils are round and equally reacting to light. EOMI. No scleral icterus. No conjunctival pallor. Normocephalic, atraumatic. No pharyngeal erythema. No thyromegaly. Laceration of the left eyebrow. CARDIOVASCULAR: S1 and S2 present. No murmurs, rubs, or gallops. PULMONARY: Chest is clear to auscultation, slight wheezing noted in the left lower lung. ABDOMEN: Soft, nontender, nondistended, normoactive bowel sounds. No palpable organomegaly. Mild tenderness of the right upper abdomen. MUSCULOSKELETAL: No joint swelling or deformity. Pain localized to the right hip EXTREMITIES: No cyanosis, clubbing, or pedal edema. NEUROLOGICAL: Gross neurological examination did not reveal any focal deficits. SKIN: No rashes. Assessment and plan # Femoral neck fracture of the right hip secondary to mechanical fall at home Patient endorses right hip pain that radiates down her right leg, femoral neck fracture confirmed on x-ray Surgical intervention required -COPD without any acute exacerbation Patient underwent right hip arthroplasty on 10/28; right hip x-ray following surgery showed right hip arthroplasty hardware intact with no new fractures visualized in expected soft tissues and postsurgical changes of the right hip. Status postoperative day #1 patient states she feels well, with no current acute complaints. PT and OT consultation in place and patient will likely require subacute rehab on discharge. Wean oxygen as tolerated Continue to encourage incentive spirometer 10 x an hour while awake. Repeat BMP/CBC in the AM Continue bowel regimen Pain management Aspirin 81 mg BID for the next 30 days The impression and plan of care has been dictated by Sarah Ellington Nurse Practitioner as directed. Dr. Marley MD I have performed a history and physical examination and medical decision making of this patient, discussed the same with the dictator, and agree with the dictators assessment and plan as written, documented as a scribe. Based on total visit time, I have performed more than 50% of this visit. Objective - Vital Signs Vital signs: Vital Signs Temp 98 F 10/31/23 20:00 Pulse 77 10/31/23 20:00 Resp 18 10/31/23 14:52 BP 114/67 10/31/23 20:00 Pulse Ox 94 L 10/31/23 20:00 FiO2 Intake & Output 10/31/23 10/31/23 11/01/23 06:59 18:59 06:59 Output Total 800 900 Balance -800 -900 Output: Urine 800 900 Uretheral (Vicente) 900 Other: Voiding Method Indwelling Catheter Indwelling Catheter # Voids 1 - Labs CBC & Chem 7: 10/30/23 05:53 10/27/23 21:59 Assessment and Plan Time with Patient: Less than 30
--- NOTE | 2023-11-01 08:33 | P.PN ---
Subjective Progress Note Date: 11/01/23 Principal diagnosis: Right femoral neck fracture. Status post fall. This is a 63-year-old female who is postop day #3 status post hemiarthroplasty of the right hip for femoral neck fracture. She has no new complaints or concerns today. Her vital signs are stable. She is hoping to be discharged to home. She is awaiting physical therapy evaluation today. Objective - Vital Signs Vital signs: Vital Signs Temp 98.2 F 11/01/23 02:00 Pulse 86 11/01/23 02:00 Resp 17 10/31/23 19:39 BP 122/68 11/01/23 02:00 Pulse Ox 96 11/01/23 02:00 FiO2 Intake & Output 10/31/23 11/01/23 11/01/23 18:59 06:59 18:59 Output Total 900 Balance -900 Output: Urine 900 Uretheral (Vicente) 900 Other: Voiding Method Indwelling Catheter Toilet # Voids 1 - Exam This is a pleasant 63-year-old female in no acute distress. She is alert and oriented x 3. Exam of the right hip reveals that her dressing is clean, dry and intact. She has full foot and ankle motion without difficulty or pain. Neurovascular status to the lower extremity is intact. - Labs CBC & Chem 7: 10/30/23 05:53 10/27/23 21:59 Assessment and Plan (1) Subcapital fracture of right hip Current Visit: Yes Status: Acute Code(s): S72.011A - UNSP INTRACAPSULAR FRACTURE OF RIGHT FEMUR, INIT FOR CLOS FX SNOMED Code(s): 228763255 (2) Fall Current Visit: Yes Status: Acute Code(s): W19.XXXA - UNSPECIFIED FALL, INITIAL ENCOUNTER SNOMED Code(s): 6406335 Plan: The clinical findings are discussed with the patient. We will await physical therapy evaluation today. If she is doing well enough she may be discharged to home. Otherwise we will look at inpatient rehab.
[2023-11-01 08:56] LABS: Blood Urea Nitrogen 10.6 mg/dL (9.0-27.0); Calcium 8.6 mg/dL (8.7-10.3); Carbon Dioxide 35.1 mmol/L (21.6-31.8); Chloride 97 mmol/L (96-109); Glucose 105 mg/dL (70-110); Potassium 3.7 mmol/L (3.5-5.5); Sodium 141 mmol/L (135-145)
[2023-11-01 13:05] LABS: Basophils # (A) 0 X 10*3/uL (0.00-0.10); Basophils % (A) 0 %; Eosinophils # (A) 0 X 10*3/uL (0.04-0.35); Eosinophils % (A) 0 %; HCT 30.6 % (37.2-46.3); HGB 10.2 g/dL (12.0-15.0); Lymphocytes # (A) 0.76 X 10*3/uL (0.90-5.00); MCH 31.6 pg (27.0-32.0); MCHC 33.3 g/dL (32.0-37.0); MCV 94.7 FL (80.0-97.0); Monocytes # (A) 1.15 X 10*3/uL (0.20-1.00); Monocytes % (A) 18.2 %; NRBC Per 100 WBC 0 X 10*3/uL (0.00-0.01); Neutrophils # (A) 4.39 X 10*3/uL (1.80-7.70); Neutrophils % (A) 69.3 %; Platelet Count 102 X 10*3/uL (140-440); RBC 3.23 X 10*6/uL (4.10-5.20); RDW 11.7 % (11.5-14.5); WBC 6.33 X 10*3/uL (4.50-10.00)
--- NOTE | 2023-11-01 14:02 | P.DS ---
Providers Date of admission: 10/27/23 21:32 Expected date of discharge: 11/01/23 Attending physician: Quinton Ceja Consults: 10/27/23 21:30 Consult Physician Urgent Consulting Provider: Lea Kwong Reason/Comments: Medical management, surgical clearance Do you want consulting provider notified?: Yes, Notify in am [facility] Diagnosis[facility]es) (1) Subcapital fracture of right hip Current Visit: Yes Status: Acute (2) Fall Current Visit: Yes Status: Acute Hospital Course: This is a 63-year-old female who presented on 10/27/2023 after falling and sustaining injury to the right hip. On exam and x-ray in the emergency department she was found to have a hip fracture. The pt is admitted to our service for surgical intervention and care. The patient is taken to surgery for hemiarthroplasty of the right hip. The procedure is performed without complication or sequelae. The patient is doing well postoperatively. Vital signs are stable on postop day #3. There are no new complaints or concerns. The patient is discharged to inpatient rehab pending medical clearance today. The patient will go home on oxygen. [facility] for accurate list of medications. Patient Condition at Discharge: Fair Plan - Discharge Summary Discharge Rx Participant: No New Discharge Prescriptions: New Meloxicam 7.5 mg PO DAILY #30 tab HYDROcodone/APAP 7.5-325MG [Mulberry 7.5-325] 1 - 2 tab PO Q6HR PRN #32 tab PRN Reason: Pain Sennosides-Docusate Sodium [Senokot-S] 1 tab PO BID #60 tablet Aspirin [Adult Low Dose Aspirin EC] 81 mg PO BID #1 tab Ondansetron Odt [Zofran Odt] 4 mg PO Q8HR PRN #14 tab PRN Reason: Nausea No Action Loratadine [Claritin] 10 mg PO DAILY Ibuprofen [Motrin] 800 mg PO Q8H PRN PRN Reason: Pain Dextroamphetamine/Amphetamine [Adderall Xr 5 mg Capsule] 5 mg PO DAILY Dextroamphetamine/Amphetamine [Adderall Xr 20 mg Capsule] 20 mg PO DAILY Butalb/APAP/Caff 50-325-40Mg [Fioricet 50-325-40] 1 tab PO Q8H PRN PRN Reason: Migraine Headache Albuterol Sulfate [Ventolin HFA] 1 - 2 puff INHALATION RT-Q6H PRN PRN Reason: Shortness Of Breath Budesonide/Formoterol Fumarate [Symbicort 160-4.5 Mcg Inhaler] 2 puff INHALATION RT-BID Discharge Medication List Albuterol Sulfate [Ventolin HFA] 1 - 2 puff INHALATION RT-Q6H PRN 10/28/23 [History] Budesonide/Formoterol Fumarate [Symbicort 160-4.5 Mcg Inhaler] 2 puff INHALATION RT-BID 10/28/23 [History] Butalb/APAP/Caff 50-325-40Mg [Fioricet 50-325-40] 1 tab PO Q8H PRN 10/28/23 [History] Dextroamphetamine/Amphetamine [Adderall Xr 20 mg Capsule] 20 mg PO DAILY 10/28/23 [History] Dextroamphetamine/Amphetamine [Adderall Xr 5 mg Capsule] 5 mg PO DAILY 10/28/23 [History] Ibuprofen [Motrin] 800 mg PO Q8H PRN 10/28/23 [History] Loratadine [Claritin] 10 mg PO DAILY 10/28/23 [History] Aspirin [Adult Low Dose Aspirin EC] 81 mg PO BID #1 tab 10/29/23 [Rx] HYDROcodone/APAP 7.5-325MG [Mulberry 7.5-325] 1 - 2 tab PO Q6HR PRN #32 tab 10/29/23 [Rx] Meloxicam 7.5 mg PO DAILY #30 tab 10/29/23 [Rx] Ondansetron Odt [Zofran Odt] 4 mg PO Q8HR PRN #14 tab 10/29/23 [Rx] Sennosides-Docusate Sodium [Senokot-S] 1 tab PO BID #60 tablet 10/29/23 [Rx] Follow up Appointment(s)/Referral(s): Inocencia Bello PAC [PHYSICIAN CATTLE TRADER] - 3 Weeks Hyacinth Garcia FNPBC [Primary Care Provider] - 1-2 days [facility], [NON-STAFF] - As Needed Activity/Diet/Wound Care/Special Instructions: May bear weight as tolerated with walker. Remove Optifoam dressing 1 week postop. May shower.
[2023-11-01 15:50] VITALS: BP 120/76; PULSE 80; RESP 18; TEMP 98.2
--- NOTE | 2023-11-02 02:55 | PN ---
PROGRESS NOTE DATE OF SERVICE: 11/01/2023 This is a 63-year-old woman, who was admitted after orthopedic surgery, is improving significantly. However, the patient requires home O2. The patient possibly had a chronic hypoxic respiratory failure secondary to COPD. I would recommend Combivent also. The patient also has some mild platelet abnormalities. I recommend close followup with primary physician in the outpatient setting. Stop smoking. Continue to monitor, stable at this time, but overall prognosis guarded. Closely follow with Orthopedic Surgery. CAROLA / ELIF: [id number] /
--- NOTE | 2023-11-02 03:25 | PN ---
PROGRESS NOTE DATE OF SERVICE: 11/01/2023 SUBJECTIVE: This is a 63-year-old woman who was admitted with femoral neck fracture, had surgery. No chest pain. No palpitation. The patient is slated to be discharged by Orthopedic Surgery. OBJECTIVE: VITAL SIGNS: Pulse is 114, blood pressure 130/76, respirations 16. CHEST: Clear. CARDIOVASCULAR: S1, S2. ABDOMEN: Soft. NERVOUS SYSTEM: Nonfocal. LABORATORY DATA: WBC 6.3, hemoglobin is 10.2. ASSESSMENT: 1. Status post right hip arthroplasty. 2. History of chronic obstructive pulmonary disease. 3. History of brain tumor. RECOMMENDATIONS AND DISCUSSION: Recommend to continue current management and continue symptomatic treatment. Otherwise, DVT prophylaxis per Orthopedic Surgery. Follow with primary physician in the outpatient setting. Further recommendations to follow. MMODL / IJN: [id number] /
== END 2023-11-01 20:10 | disposition home health service (06) | DRG 323 ==
LOC: EC 18:15 → 4SSUR 21:32
PROVIDERS: ADMIT Orthopaedic Surgery; ATTEND Orthopaedic Surgery
PROC: 0SRR0J9 Replacement of Right Hip Joint, Femoral Surface with Synthetic Substitute, Cemented, Open Approach (ICD-10-PCS; principal; 2023-10-29 12:00)
DX: S72.011A Unspecified intracapsular fracture of right femur, initial encounter for closed fracture (principal); W18.30XA Fall on same level, unspecified, initial encounter; Y92.009 Unspecified place in unspecified non-institutional (private) residence as the place of occurrence of the external cause; D49.6 Neoplasm of unspecified behavior of brain; F17.210 Nicotine dependence, cigarettes, uncomplicated; F32.A Depression, unspecified; J44.9 Chronic obstructive pulmonary disease, unspecified; Z79.51 Long term (current) use of inhaled steroids; Z79.82 Long term (current) use of aspirin; Z91.81 History of falling; Z79.899 Other long term (current) drug therapy
CPT/HCPCS: 36415; 64447; 71045; 73501; 73502; 80048; 80053; 85025; 85610; 86850; 86900; 86901; 96374; 99285